=== PATIENT | female | born 1970 | race Caucasian/White ===

== ENCOUNTER 2024-03-06 15:19 | Outpatient (CLI) | payer BC, SELFPAY ==
--- NOTE | ~2024-03-06 | XR_ITS ---
Left foot Technique: AP, oblique, and lateral views were obtained. Clinical History: Pain Findings: No acute fracture or dislocation is seen. Osseous alignment is anatomic. Joint or degenerat kerwin change of the calcaneocuboid joint. Soft tissues are unremarkable. Impression: Degenerative change of the calcaneocuboid joint. Reviewed, dictated and finalized at location . Impression: Degenerative change of the calcaneocuboid joint.
== END 2024-03-06 15:20 | disposition home or self-care (01) ==
LOC: GOSHIMG 15:22
PROVIDERS: PCP Physician Assistant; Visit Provider Physician Assistant
DX: M19.072 Primary osteoarthritis, left ankle and foot (principal)
CPT/HCPCS: 73630